=== PATIENT | female | born 1970 | race Caucasian/White ===

== ENCOUNTER 2023-06-07 17:35 | Emergency (ER) | payer MEDICAID, SELFPAY ==
[2023-06-07 17:47] VITALS: BP 200/114; PULSE 68; RESP 18; TEMP 36.5; O2SAT 97; BMI 32.9
[2023-06-07 17:53] VITALS: BP 190/100; PULSE 66; RESP 20; O2SAT 98
[2023-06-07 18:00] VITALS: BP 190/108
--- NOTE | 2023-06-07 18:44 | ED_ITS ---
HPI - General Adult General Chief complaint: Upper Respiratory Infection Stated complaint: Allergic Reaction Time Seen by Provider: 06/07/23 17:56 Source: patient Mode of arrival: walk-in Limitations: no limitations History of Present Illness HPI narrative: Patient is a 53-year-old female who is presenting to the Emergency Room with chief complaint of flulike and sinus-like symptoms that have been ongoing since Monday. Patient had mild fever, sinus congestion starting Monday and Monday. Patient's had a mild sinus headache the last 2 days, today she had some mild swelling below her eyes. Patient has soome bilateral ear pain as well, left greater than right. Patient has taken nothing [id number] to help treat her symptoms. Patient has an appointment with a new PCP next Monday. Patient's blood pressure was elevated, patient states that she is currently not taking any blood pressure medication. In January or February, patient was placed on blood pressure medication the patient was not happy about so she never picked up the prescription from the pharmacy. Patient also has long-standing history of thyroid diagnosis. Patient did have her thyroid completely removed in nodules. Patient has been on 2 separate doses of thyroid medication, she did not like it and the way it made her feel, so patient eventually stopped taking thyroid medication because she felt like she is better on it. Patient has no significant headache, pain headache no chest pain or shortness of breath. Patient is here because her sinus symptoms, mild sore throat, not because of her thyroid her blood pressure. Patient's blood pressure was discussed during HPI initial physical exam. . All systems are negative except as noted/marked. All systems reviewed and otherwise negative. . Nurses note and vital signs reviewed and patient is not hypoxic. General: The patient appears well and in no apparent distress. Patient is resting comfortably on cart. Patient is not toxic, lethargic, or listless Skin: Warm, dry, no pallor noted. There is no rash noted. No petechiae, purpura. Head: Normocephalic, atraumatic, Mild bilateral frontal and sinus tenderness to palpation. Eye: Normal conjunctiva, no drainage, EOMI. PERRL. Ears, Nose, Mouth, and Throat: oral mucosa is moist. Nares patent. Mouth without vesicles. Bilateral tympanic membrane shows minimal erythema bilateral, no bulging, perforation. No air-fluid levels noted behind bilateral tympanic membrane. Mild clear drainage and mild cobblestoning noted to the posterior pharynx, no unilateral swelling, no petechiae, exudate, no acute pathology noted to the posterior pharynx. Cardiovascular: Regular Rate and Rhythm, no murmur, gallop, rub Respiratory: Patient is in no distress, no accessory muscle use, lungs are clear to auscultation, no wheezing, rales or rhonchi Back: non-tender, GI: soft, Obese, no tenderness Musculoskeletal: Patient has full range of motion of all of the extremities, no motor, sensory, or focal neurological deficits Neurological: A&O x3, normal speech Psychiatric: Cooperative Related Data Allergies Allergy/AdvReac Type Severity Reaction Status Date / Time nalbuphine [From Nubain] AdvReac Intermediate Verified 06/07/23 17:51 sulfamethoxazole AdvReac Intermediate Verified 06/07/23 17:51 [From Bactrim] trimethoprim [From Bactrim] AdvReac Intermediate Verified 06/07/23 17:51 celebrex AdvReac Intermediate Uncoded 06/07/23 17:51 PFSH PFSH Social History Smoking status: Current every day smoker Exam Constitutional Vital Signs, click to edit/add: Last Vital Signs Temp 97.7 F 06/07/23 17:47 Pulse 66 06/07/23 17:53 Resp 20 06/07/23 17:53 BP 155/101 H 06/07/23 19:23 Pulse Ox 98 06/07/23 17:53 O2 Del Method Room Air 06/07/23 17:53 Course Vital Signs Vital signs: Vital Signs Temperature 97.7 F 06/07/23 17:47 Pulse Rate 68 06/07/23 17:47 Respiratory Rate 18 06/07/23 17:47 Blood Pressure 200/114 H 06/07/23 17:47 Pulse Oximetry 97 06/07/23 17:47 Oxygen Delivery Method Room Air 06/07/23 17:47 Temperature 97.7 F 06/07/23 17:47 Pulse Rate 66 06/07/23 17:53 Respiratory Rate 20 06/07/23 17:53 Blood Pressure 155/101 H 06/07/23 19:23 Pulse Oximetry 98 06/07/23 17:53 Oxygen Delivery Method Room Air 06/07/23 17:53 Medical Decision Making MDM Narrative Medical decision making narrative: Patient has an appointment with her new PCP on Monday. Patient does not want anything addressed with her thyroid her blood pressure. Education on taking her blood pressure twice a day, continue to record a log like she has been. Patient has been checking her blood pressure at work, and is been fluctuating above and below 140/90. Patient will present her blood pressure readings to her PCP next week. Patient will follow-up with her thyroid medication with a new PCP on Monday. Education was done at bedside and on discharge paperwork treating sinus symptoms at home. Patient will follow-up with PCP on Monday. No acute indication for antibiotic. Patient will use ice to her minimal swelling below her eyes, upper cheeks. No secondary signs of cellulitis or any other acute infections or abscess. ECG Data Attestation: I personally reviewed and interpreted this ECG as follows: (EKG interpretation. Normal sinus rhythm at 59 beats a minute. Normal axis deviation. No acute ST elevation, no acute ectopy. QTc of 379.) Discharge Plan Discharge Chief Complaint: Upper Respiratory Infection Clinical Impression: Sinus congestion, Ear pain, Sore throat Patient Disposition: Home, Self-Care Time of Disposition Decision: 19:09 Condition: Fair Instructions: Pharyngitis (ED), Earache (ED), Cold Symptoms (ED), How to Use Nasal [place] (ED) Additional Instructions: Increase fluids at home, Gatorade, Powerade, or water. Alternate using DayQuil, NyQuil, and Flonase. Add Mucinex as well as needed. Alternate Tylenol and Motrin every 4 hours to help with fever control, body aches or joint pain. Use yykw-kdf-exthnat vitamin C, vitamin D3, and zinc to help fight infection and help with her immune system. Record your blood pressure twice a day as discussed, continue doing what you are doing. Bring your blood pressure log into your new PCP on Monday. If your blood pressure is consistently greater than 140/90, you may need blood pressure medication. Referrals: Physician,Non-Staff, MD [Primary Care Provider] - 1 week Discharge Date/Time: 06/07/23 19:26 Stand Alone Forms: Portal Instructions
--- NOTE | 2023-06-07 18:55 | ECG_ITS ---
[facility] Test Date: 2023-06-07 Pat Name: EMILIA NORMAN Department: Room: - Gender: Female Hse Advisor: : [id number] Requested By: PEE FELICIANO Order Number: [id number] Reading MD: PEE FELICIANO Measurements Intervals [place] Rate: 59 P: 46 [place]: 172 QRS: 56 QRSD: 82 T: 90 QT: 380 QTc: 379 Interpretive Statements 1100 Sinus rhythm 4068 Nonspecific [place] abnormality 9130 borderline ECG No previous ECG available for comparison Electronically Signed On 06-08-2023 6:06:50 EST by PEE FELICIANO
[2023-06-07 19:23] VITALS: BP 155/101
== END 2023-06-07 19:26 | disposition home or self-care (01) ==
PROVIDERS: Emergency Provider Emergency Medicine
DX: J02.9 Acute pharyngitis, unspecified (principal); R09.81 Nasal congestion; H92.03 Otalgia, bilateral; F17.200 Nicotine dependence, unspecified, uncomplicated
CPT/HCPCS: 93005; 99284